=== PATIENT | female | born 1935 | race Caucasian/White ===

== ENCOUNTER 2017-12-20 09:16 | Outpatient (CLI) | payer OTHER, BC | END 2017-12-20 09:21 | disposition home or self-care (01) | LOC: LAB 09:16 | DX: C7A.090 Malignant carcinoid tumor of the bronchus and lung (principal) ==

== ENCOUNTER 2018-03-27 10:02 | Outpatient (CLI) | payer OTHER, BC | END 2018-03-27 10:10 | disposition home or self-care (01) | LOC: LAB 10:02 | DX: C7A.090 Malignant carcinoid tumor of the bronchus and lung (principal) ==

== ENCOUNTER 2018-05-21 16:06 | Emergency (ER) | payer OTHER, BC ==
[~2018-05-21] VITALS: Ht 165.1 cm; Wt 78.0 kg
[2018-05-21] MEDS ORDERED: SYNTHROID75 MCG (16:47)
[2018-05-21] MEDS ORDERED: NEURIN SL (16:47)
[2018-05-21] MEDS ORDERED: PRAVASTATIN SOD40 MG (16:48)
[2018-05-21] MEDS ORDERED: DIAZEPAM5 MG (16:49)
[2018-05-21] MEDS ORDERED: CREON DR 12,001 EACH (16:49)
[2018-05-21] MEDS ORDERED: OCTREOTIDE500 MCG/2 (16:49)
[2018-05-21] MEDS ORDERED: BENADRYL25 MG (16:50)
[2018-05-21] MEDS ORDERED: BIOTIN10000 MC1 (16:50)
[2018-05-21] MEDS ORDERED: PROBIOTIC1 EAC3 (16:50)
[2018-05-21] MEDS ORDERED: GLUCOSAMINE &1 EAC1 (16:51)
[2018-05-21] MEDS ORDERED: D3 DOTS2000 UNIT (16:51)
[2018-05-21] MEDS ORDERED: CURCUMIN1 GM (16:52)
[2018-05-21] MEDS ORDERED: CYSTOPROTEK (16:52)
[2018-05-21] MEDS ORDERED: TRIMETHOPRIM100 MG (16:53)
== END 2018-05-21 18:05 | disposition home or self-care (01) ==
LOC: ER 16:06
DX: G89.11 Acute pain due to trauma (principal); M25.551 Pain in right hip; M25.552 Pain in left hip

== ENCOUNTER → 2018-05-22 | Outpatient (CLI) | payer OTHER, BC ==
[~2018-05-22] MED LIST: BENADRYL25 MG; BIOTIN10000 MC1; CREON DR 12,001 EACH; CURCUMIN1 GM; CYSTOPROTEK; D3 DOTS2000 UNIT; DIAZEPAM5 MG; GLUCOSAMINE &1 EAC1; NEURIN SL; OCTREOTIDE500 MCG/2; PRAVASTATIN SOD40 MG; PROBIOTIC1 EAC3; SYNTHROID75 MCG; TRIMETHOPRIM100 MG
== END | disposition home or self-care (01) ==
LOC: LAB 14:54
DX: E55.9 Vitamin D deficiency, unspecified (principal); M85.9 Disorder of bone density and structure, unspecified; E21.2 Other hyperparathyroidism; E88.89 Other specified metabolic disorders; M81.8 Other osteoporosis without current pathological fracture; E83.42 Hypomagnesemia; E56.1 Deficiency of vitamin K; E03.8 Other specified hypothyroidism; D64.89 Other specified anemias; M06.4 Inflammatory polyarthropathy; M10.9 Gout, unspecified

== ENCOUNTER 2018-05-29 15:56 | Outpatient (CLI) | payer OTHER, BC | END 2018-05-29 15:57 | disposition home or self-care (01) | LOC: LAB 15:56 | DX: D64.89 Other specified anemias (principal); M06.4 Inflammatory polyarthropathy; N39.0 Urinary tract infection, site not specified ==

== ENCOUNTER 2018-06-07 10:48 | Outpatient (CLI) | payer OTHER, BC | END 2018-06-07 10:50 | disposition home or self-care (01) | LOC: LAB 10:48 | DX: I10 Essential (primary) hypertension (principal); E86.0 Dehydration; D64.89 Other specified anemias; N39.0 Urinary tract infection, site not specified ==

== ENCOUNTER 2018-06-12 09:41 | Emergency (ER) | payer OTHER, BC ==
[~2018-06-12] VITALS: Ht 162.6 cm; Wt 72.6 kg
== END 2018-06-12 16:24 | disposition home or self-care (01) ==
LOC: ER 09:41
DX: R53.1 Weakness (principal); E86.0 Dehydration

== ENCOUNTER 2018-08-16 14:14 | Outpatient (CLI) | payer OTHER, BC | END 2018-08-16 14:20 | disposition home or self-care (01) | LOC: NUCLEAR 14:14 | DX: M81.0 Age-related osteoporosis without current pathological fracture (principal) ==

== ENCOUNTER 2018-08-24 08:22 | Outpatient (CLI) | payer OTHER, BC | END 2018-08-24 08:28 | disposition home or self-care (01) | LOC: LAB 08:22 | DX: N39.0 Urinary tract infection, site not specified (principal); E78.00 Pure hypercholesterolemia, unspecified; C7A.090 Malignant carcinoid tumor of the bronchus and lung ==

== ENCOUNTER 2018-12-23 11:11 | Outpatient (CLI) | payer OTHER, BC ==
[2018-12-23] MEDS ORDERED: BENADRYL25 MG (22:10)
[2018-12-24] MEDS ORDERED: INTESTINEX680 M1 PO (05:37)
[2018-12-24] MEDS ORDERED: PEPCID AC20 MG PO (05:37)
[2018-12-24] MEDS ORDERED: LEVSIN/SL0.125 MG SL (05:37)
[2018-12-24] MEDS ORDERED: ULTRACET PO (05:37)
[2018-12-24] MEDS ORDERED: AMOX-CLAV 875-1 EACH PO (05:37)
== END 2018-12-23 14:54 | disposition home or self-care (01) ==
LOC: LAB 11:11
DX: Z51.81 Encounter for therapeutic drug level monitoring (principal)

== ENCOUNTER 2018-12-23 21:42 | Emergency (ER) | payer OTHER, BC ==
[~2018-12-23] VITALS: Ht 162.6 cm; Wt 78.0 kg
[2018-12-23] MEDS ORDERED: BENADRYL25 MG (22:10)
[2018-12-24] MEDS ORDERED: LEVSIN/SL0.125 MG SL (05:37)
[2018-12-24] MEDS ORDERED: INTESTINEX680 M1 PO (05:37)
[2018-12-24] MEDS ORDERED: PEPCID AC20 MG PO (05:37)
[2018-12-24] MEDS ORDERED: AMOX-CLAV 875-1 EACH PO (05:37)
[2018-12-24] MEDS ORDERED: ULTRACET PO (05:37)
== END 2018-12-24 05:57 | disposition home or self-care (01) ==
LOC: ER 21:42
DX: K57.30 Diverticulosis of large intestine without perforation or abscess without bleeding (principal); R10.32 Left lower quadrant pain

== ENCOUNTER 2019-01-06 16:15 | Inpatient (IN) | payer OTHER, BC ==
[~2019-01-06 16:15] MED LIST changes: +AMOX-CLAV 875-1 EACH PO; +INTESTINEX680 M1 PO; +LEVSIN/SL0.125 MG SL; +PEPCID AC20 MG PO; +ULTRACET PO
[2019-01-10] MEDS ORDERED: HYOSCYAMINE0.125 M1 SL (09:42)
[2019-01-10] MEDS ORDERED: VANCOMYCIN HCL1 GM PO (09:42)
[2019-01-10] MEDS ORDERED: DIAZEPAM5 MG PO (09:43)
[2019-01-10] MEDS ORDERED: INTESTINEX680 M1 PO (09:43)
[2019-01-10] MEDS ORDERED: LEVOTHYROXINE112 MCG PO (09:44)
== END 2019-01-10 09:57 | disposition home or self-care (01) | DRG 372 ==
LOC: MEDI 16:15 → SEC-K 16:15 → MEDI 17:03
PROVIDERS: ADMIT Internal Medicine Hematology & Oncology
PROC: 8E0ZXY6 Isolation (ICD-10-PCS; principal; 2019-01-06)
DX: A04.72 Enterocolitis due to Clostridium difficile, not specified as recurrent (principal); C7A.090 Malignant carcinoid tumor of the bronchus and lung; E86.0 Dehydration; E87.8 Other disorders of electrolyte and fluid balance, not elsewhere classified; E03.8 Other specified hypothyroidism; Z88.6 Allergy status to analgesic agent; E31.21 Multiple endocrine neoplasia [MEN] type I; K57.30 Diverticulosis of large intestine without perforation or abscess without bleeding; D63.8 Anemia in other chronic diseases classified elsewhere

== ENCOUNTER 2019-02-08 08:06 | Outpatient (CLI) | payer OTHER, BC ==
[~2019-02-08 08:06] MED LIST changes: +DIAZEPAM5 MG PO; +HYOSCYAMINE0.125 M1 SL; +LEVOTHYROXINE112 MCG PO; +VANCOMYCIN HCL1 GM PO
== END 2019-02-08 08:50 | disposition home or self-care (01) ==
LOC: LAB 08:06
DX: C7A.090 Malignant carcinoid tumor of the bronchus and lung (principal)

== ENCOUNTER 2019-02-28 12:34 | Outpatient (CLI) | payer OTHER, BC | END 2019-02-28 12:42 | disposition home or self-care (01) | LOC: LAB 12:34 | DX: C7A.090 Malignant carcinoid tumor of the bronchus and lung (principal) ==

== ENCOUNTER → 2019-03-03 | Outpatient (CLI) | payer OTHER, BC | END | disposition home or self-care (01) | LOC: TOM 08:30 | DX: E34.0 Carcinoid syndrome (principal); C7A.090 Malignant carcinoid tumor of the bronchus and lung | CPT/HCPCS: 71260; 74177; Q9965 ==

== ENCOUNTER 2019-06-24 09:19 | Outpatient (CLI) | payer OTHER, BC | END 2019-06-24 09:25 | disposition home or self-care (01) | LOC: LAB 09:19 | DX: C7A.090 Malignant carcinoid tumor of the bronchus and lung (principal) ==

== ENCOUNTER 2019-07-18 17:30 | Inpatient (IN) | payer OTHER, BC ==
[~2019-07-18] VITALS: Ht 172.7 cm; Wt 81.6 kg
[2019-07-22] MEDS ORDERED: DIAZEPAM5 MG PO (09:46)
== END 2019-07-22 11:38 | disposition home or self-care (01) | DRG 191 ==
LOC: SURH 17:30
PROVIDERS: ADMIT Internal Medicine Hematology & Oncology
PROC: 4A033R1 Measurement of Arterial Saturation, Peripheral, Percutaneous Approach (ICD-10-PCS; principal; 2019-07-18)
DX: J44.1 Chronic obstructive pulmonary disease with (acute) exacerbation (principal); J45.41 Moderate persistent asthma with (acute) exacerbation; K57.32 Diverticulitis of large intestine without perforation or abscess without bleeding; J90 Pleural effusion, not elsewhere classified; C7A.090 Malignant carcinoid tumor of the bronchus and lung; E03.8 Other specified hypothyroidism; E31.21 Multiple endocrine neoplasia [MEN] type I; Z85.110 Personal history of malignant carcinoid tumor of bronchus and lung; Z88.6 Allergy status to analgesic agent; Z08 Encounter for follow-up examination after completed treatment for malignant neoplasm

== ENCOUNTER 2019-07-28 04:46 | Inpatient (IN) | payer OTHER, BC ==
[~2019-07-28] VITALS: Ht 172.7 cm; Wt 87.1 kg
== END 2019-07-30 10:16 | disposition home or self-care (01) | DRG 392 ==
LOC: ER 04:46 → SEC-K 09:41 → MEDJ 09:41
PROVIDERS: ADMIT Internal Medicine Hematology & Oncology
PROC: 3E0F7GC Introduction of Other Therapeutic Substance into Respiratory Tract, Via Natural or Artificial Opening (ICD-10-PCS; 2019-07-28)
PROC: 8E0ZXY6 Isolation (ICD-10-PCS; 2019-07-28)
PROC: BW21Y0Z Computerized Tomography (CT Scan) of Abdomen and Pelvis using Other Contrast, Unenhanced and Enhanced (ICD-10-PCS; principal; 2019-07-29)
DX: K57.30 Diverticulosis of large intestine without perforation or abscess without bleeding (principal); C34.02 Malignant neoplasm of left main bronchus; J44.1 Chronic obstructive pulmonary disease with (acute) exacerbation; K52.89 Other specified noninfective gastroenteritis and colitis; E86.0 Dehydration; E87.8 Other disorders of electrolyte and fluid balance, not elsewhere classified; E03.8 Other specified hypothyroidism; D63.8 Anemia in other chronic diseases classified elsewhere; I10 Essential (primary) hypertension; K80.80 Other cholelithiasis without obstruction

== ENCOUNTER 2019-10-03 12:35 | Outpatient (CLI) | payer OTHER, BC | END 2019-10-03 12:36 | disposition home or self-care (01) | LOC: RAD 12:35 | DX: R05 Cough (principal) ==

== ENCOUNTER 2019-11-05 13:56 | Outpatient (CLI) | payer OTHER, BC | END 2019-11-05 14:04 | disposition home or self-care (01) | LOC: NUCLEAR 13:56 | DX: M81.0 Age-related osteoporosis without current pathological fracture (principal) ==

== ENCOUNTER → 2019-11-05 | Outpatient (CLI) | payer OTHER, BC | END | disposition home or self-care (01) | LOC: RAD 15:24 | DX: M54.5 Low back pain (principal); M17.0 Bilateral primary osteoarthritis of knee; M79.672 Pain in left foot; M81.0 Age-related osteoporosis without current pathological fracture ==

== ENCOUNTER 2019-11-28 08:37 | Emergency (ER) | payer OTHER, BC ==
[~2019-11-28] VITALS: Ht 172.7 cm; Wt 83.9 kg
== END 2019-11-28 16:01 | disposition home or self-care (01) ==
LOC: ER 08:37
DX: J22 Unspecified acute lower respiratory infection (principal); R06.02 Shortness of breath; B96.0 Mycoplasma pneumoniae [M. pneumoniae] as the cause of diseases classified elsewhere

== ENCOUNTER → 2019-12-02 14:35 | Outpatient (CLI) | payer OTHER, BC | END | disposition home or self-care (01) | LOC: LAB 14:35 | DX: D72.89 Other specified disorders of white blood cells (principal) ==

== ENCOUNTER 2019-12-02 15:00 | Outpatient (CLI) | payer OTHER, BC | END 2019-12-02 15:07 | disposition home or self-care (01) | LOC: RAD 15:00 | DX: A49.3 Mycoplasma infection, unspecified site (principal); C7A.090 Malignant carcinoid tumor of the bronchus and lung ==

== ENCOUNTER 2019-12-05 14:14 | Inpatient (IN) | payer OTHER, BC ==
[2019-12-09] MEDS ORDERED: DIAZEPAM5 MG PO (17:58)
[2019-12-09] MEDS ORDERED: LEVOTHYROXINE112 MCG PO (17:59)
[2019-12-09] MEDS ORDERED: INTESTINEX680 M1 PO (17:59)
== END 2019-12-09 18:22 | disposition home or self-care (01) | DRG 190 ==
LOC: MEDJ 14:14
PROVIDERS: ADMIT Internal Medicine Hematology & Oncology
PROC: BB24Y0Z Computerized Tomography (CT Scan) of Bilateral Lungs using Other Contrast, Unenhanced and Enhanced (ICD-10-PCS; principal; 2019-12-05)
PROC: 4A033R1 Measurement of Arterial Saturation, Peripheral, Percutaneous Approach (ICD-10-PCS; 2019-12-05)
PROC: 3E0F7GC Introduction of Other Therapeutic Substance into Respiratory Tract, Via Natural or Artificial Opening (ICD-10-PCS; 2019-12-05)
PROC: 8E0ZXY6 Isolation (ICD-10-PCS; 2019-12-05)
DX: J44.1 Chronic obstructive pulmonary disease with (acute) exacerbation (principal); J15.7 Pneumonia due to Mycoplasma pneumoniae; B37.1 Pulmonary candidiasis; C7A.090 Malignant carcinoid tumor of the bronchus and lung; E03.8 Other specified hypothyroidism; I12.9 Hypertensive chronic kidney disease with stage 1 through stage 4 chronic kidney disease, or unspecified chronic kidney disease; N18.3 Chronic kidney disease, stage 3 (moderate); E31.20 Multiple endocrine neoplasia [MEN] syndrome, unspecified

== ENCOUNTER 2020-08-11 09:09 | Outpatient (CLI) | payer OTHER, BC | END 2020-08-11 15:29 | disposition home or self-care (01) | LOC: TOM 09:09 | PROVIDERS: ATTEND Physical Medicine & Rehabilitation | DX: K57.90 Diverticulosis of intestine, part unspecified, without perforation or abscess without bleeding (principal); C7A.090 Malignant carcinoid tumor of the bronchus and lung ==

== ENCOUNTER → 2020-08-13 09:17 | Outpatient (CLI) | payer OTHER, BC | END | disposition home or self-care (01) | LOC: LAB 09:17 | PROVIDERS: ATTEND Internal Medicine | DX: E03.8 Other specified hypothyroidism (principal); M54.5 Low back pain; I10 Essential (primary) hypertension; Z01.810 Encounter for preprocedural cardiovascular examination; C7A.090 Malignant carcinoid tumor of the bronchus and lung; C64.9 Malignant neoplasm of unspecified kidney, except renal pelvis ==

== ENCOUNTER 2021-01-22 08:46 | Inpatient (IN) | payer OTHER, BC ==
[~2021-01-22] VITALS: Ht 172.7 cm; Wt 77.1 kg
[2021-01-22] MEDS ORDERED: PEPCID AC20 MG PO (09:29)
[2021-01-22] MEDS ORDERED: ZOFRAN4 MG PO (09:30)
[2021-01-22] MEDS ORDERED: ULTRAM50 MG PO (09:30)
[2021-01-27] MEDS ORDERED: HYOSCYAMINE0.125 M1 SL (07:55)
[2021-01-27] MEDS ORDERED: XOPENEX0.63 MG/3 IH (07:55)
[2021-01-27] MEDS ORDERED: FENTANYL1 EAC3 TD (07:56)
== END 2021-01-27 13:12 | disposition home or self-care (01) | DRG 389 ==
LOC: ER 08:46 → MEDJ 19:31
PROVIDERS: ADMIT Internal Medicine; ATTEND Internal Medicine
PROC: BW21YZZ Computerized Tomography (CT Scan) of Abdomen and Pelvis using Other Contrast (ICD-10-PCS; principal; 2021-01-22)
PROC: 3E0F7SF Introduction of Other Gas into Respiratory Tract, Via Natural or Artificial Opening (ICD-10-PCS; 2021-01-27)
DX: K56.7 Ileus, unspecified (principal); C34.91 Malignant neoplasm of unspecified part of right bronchus or lung; J44.9 Chronic obstructive pulmonary disease, unspecified; E03.9 Hypothyroidism, unspecified; Z20.822 Contact with and (suspected) exposure to COVID-19